=== PATIENT | female | born 1965 | race Caucasian/White ===

== ENCOUNTER → 2018-12-11 08:32 | Outpatient (CLI) | payer OTHER, SELFPAY ==
--- NOTE | 2018-12-11 08:39 | CDU_ITS ---
Reason For Study: amaurosis fugax Rt. Velocities/BP Lt. Velocities/BP Prox CCA 100.0/30.8 cm/sec. Prox CCA 118.7/43.8 cm/sec. Mid CCA 98.7/33.5 cm/sec. Mid CCA 95.3/37.6 cm/sec. Dist CCA 97.4/36.1 cm/sec. Dist CCA 88.0/35.2 cm/sec. Prox ICA 48.0/10.0 cm/sec. Prox ICA 92.5/35.9 cm/sec. Mid ICA 86.4/33.7 cm/sec. Mid ICA 104.0/37.6 cm/sec. Dist ICA 123.6/53.6 cm/sec. Dist ICA 95.3/42.5 cm/sec. Rt. ICA/CCA = 1.3. Lt. ICA/CCA = 1.0. Prox ECA 113.0/29.5 cm/sec. Prox ECA 92.9/22.9 cm/sec. Rt. Vert. 53.6/22.9 cm/sec. Lt. Vert. 53.6/21.7 cm/sec. Right Extracranial There is intimal thickening but no significant atherosclerotic plaque noted in the right common carotid artery. There is intimal thickening but no significant atherosclerotic plaque noted in the right internal carotid artery. There is intimal thickening but no significant atherosclerotic plaque noted in the right external carotid artery. Antegrade flow is noted in the right vertebral artery. Left Extracranial There is intimal thickening but no significant atherosclerotic plaque noted in the left common carotid artery. There is intimal thickening but no significant atherosclerotic plaque noted in the left internal carotid artery. There is intimal thickening but no significant atherosclerotic plaque noted in the left external carotid artery. Antegrade flow is noted in the left vertebral artery. Procedure Carotid Duplex [id number]. The exam was diagnostic. Exam performed in department. Interpretation Summary No significant atherosclerotic plaque or stenosis noted in the internal carotid arteries bilaterally. Flow within the vertebral arteries is antegrade bilaterally. Ordering Physician: Hector Bonilla Performed By: Laz Briones RVT
== END ==
PROVIDERS: Family Provider Internal Medicine; PCP Internal Medicine; Referring Provider Psychiatry & Neurology Neurology; Visit Provider Psychiatry & Neurology Neurology
DX: G45.3 Amaurosis fugax (principal)
CPT/HCPCS: 93880

== ENCOUNTER → 2019-01-29 13:21 | Outpatient (CLI) | payer OTHER, SELFPAY ==
--- NOTE | 2019-01-29 13:24 | CT_ITS ---
STUDY: CTA OF THE BRAIN REASON FOR EXAM: Female, 53 years old. Amaurosis fugax, black/fuzzy vision changes. Hx hypertension. RADIATION DOSAGE (If Supplied By Facility): CTDIvol = ( 26.01 ) mGy, DLP = ( 1124.31 ) mGycm TECHNIQUE: Noncontrasted head CT initially performed. CT angiography was performed with a multi-detector CT scanner. Data acquisition was obtained from the skull base through the vertex following intravenous administration of 100mL Isovue-370. MIP images were reconstructed from the axial data set. Post-processing of the angiographic images was performed, with multiplanar reformation and 3D reconstruction. Individualized dose optimization techniques were used for this CT. COMPARISON: None. FINDINGS: Normal bilateral petrous carotid arteries. Normal right cavernous carotid artery with a normal supraclinoid bifurcation. Normal left cavernous carotid artery with a normal supraclinoid bifurcation. Normal right A1 segments of the anterior cerebral artery. Normal left A1 segments of the anterior cerebral artery. Normal intact anterior communicating artery (ACOM). Normal bilateral A2 segments of the anterior cerebral arteries. Normal right M1 and M2 segments of the middle cerebral arteries, with a normal M1 bifurcation. Normal left M1 and M2 segments of the middle cerebral arteries, with a normal M1 bifurcation. Normal right posterior communicating artery (PCOM). There is a persistent origin of the left posterior cerebral artery with absence of the posterior communicating artery (PCOM). Normal bilateral vertebral arteries. Normal basilar artery with a normal basilar bifurcation. The visualized bilateral superior cerebellar (SCA) arteries are normal. Normal bilateral P1, P2 and visualized P3 segments of the posterior cerebral arteries. There is no demonstrated aneurysm of the [place]. Ventricular system is normal for age. No masses, mass effects or shift of midline structures. No acute intracranial hemorrhage, obvious infarction or abnormal collection of extra-axial fluid. The visualized paranasal sinuses, orbits and mastoid air cells are unremarkable. Calvarium and extracranial soft tissues are also normal. CT/CTA Head W/WO Contrast IMPRESSION: 1. Normal [place] without a demonstrated aneurysm or hemodynamically significant stenosis. 2. Normal noncontrast head CT. Electronically Signed: Miles Gar MD ([place]) at 8:14 EST , Service support ,
== END ==
PROVIDERS: Family Provider Internal Medicine; PCP Internal Medicine; Referring Provider Psychiatry & Neurology Neurology; Visit Provider Psychiatry & Neurology Neurology
DX: G45.3 Amaurosis fugax (principal)
CPT/HCPCS: 70496; Q9967